=== PATIENT | female | born 1980 | race Caucasian/White ===

== ENCOUNTER 2020-07-12 18:44 | Outpatient (REF) | payer OTHER, SELFPAY ==
[2020-07-12 16:11] LABS: Anion Gap 10.6 mmol/L (3-11); BUN 5 mg/dL (7-18); CO2 29.4 mmol/L (21.0-32.0); CREATININE 0.6 mg/dL (0.55-1.02); Calcium 8.4 mg/dL (8.5-10.1); Calculated LDL 47 mg/dL (<100); Chloride 103 mmol/L (98-107); Cholesterol 152 mg/dL (<200); Glucose 85 mg/dL (74-106); HDL Cholesterol 91 mg/dL (40-60); Sodium 143 mmol/L (136-145); Triglyceride 72 mg/dL (<150)
== END 2020-07-12 18:45 | disposition home or self-care (01) ==
LOC: NCHCN 18:44
PROVIDERS: PCP Nurse Practitioner; Visit Provider Nurse Practitioner Family
DX: Z00.00 Encounter for general adult medical examination without abnormal findings (principal); R60.0 Localized edema; Z13.220 Encounter for screening for lipoid disorders
CPT/HCPCS: 80048; 80061

== ENCOUNTER 2021-07-15 19:59 | Outpatient (REF) | payer OTHER, SELFPAY ==
[2021-07-15 17:39] LABS: ALT 39 U/L (14-59); AST 40 U/L (15-37); Albumin 3.2 g/dL (3.4-5.0); Alkaline Phosphatase 102 U/L (46-116); Anion Gap 8.8 mmol/L (3-11); BUN 4 mg/dL (7-18); Bilirubin, Total 0.6 mg/dL (0.2-1.0); CO2 29.2 mmol/L (21.0-32.0); CREATININE 0.8 mg/dL (0.55-1.02); Calcium 8.7 mg/dL (8.5-10.1); Calculated LDL 83 mg/dL (<100); Chloride 105 mmol/L (98-107); Cholesterol 181 mg/dL (<200); Glucose 89 mg/dL (74-106); HDL Cholesterol 78 mg/dL (40-60); Potassium 4.2 mmol/L (3.5-5.1); Sodium 143 mmol/L (136-145); Total Protein 6.9 g/dL (6.4-8.2); Triglyceride 104 mg/dL (<150)
== END 2021-07-15 20:00 | disposition home or self-care (01) ==
LOC: NCHCN 19:59
PROVIDERS: PCP Nurse Practitioner; Visit Provider Nurse Practitioner Family
DX: Z00.00 Encounter for general adult medical examination without abnormal findings (principal); Z13.220 Encounter for screening for lipoid disorders
CPT/HCPCS: 80053; 80061

== ENCOUNTER 2022-05-20 15:03 | Outpatient (REF) | payer OTHER, SELFPAY ==
--- NOTE | 2022-05-20 14:25 | PAPFT_PTH ---
PATIENT: Rhona Cruz LOC: [facility]#:[id number] AGE/SX: 42/F ROOM: RE05/20/[address]: RAZIA TIMMONS : 1980 BED: DIS: 05/20/2022 SPEC #: [id number] RECD: 05/21/22 12:50 STATUS: MAGNUS REQ #: [id number] RONALD: 05/20/22 14:[address]: Razia Timmons DEPT: [facility] Cytology RECD BY: Lynnette Stevenson ENTERED: 05/21/22 12:51 SP TYPE: PAPFT OTHR DR: Angelina Mendoza Tissues: 1 - CX/ENDOCX FOR PAP SMEARS Procedures: PAP THIN PREP/[facility] Screening HPV DNA PROBE Comments: [id number]
== END 2022-05-20 15:04 | disposition home or self-care (01) ==
LOC: NCHCN 15:03
PROVIDERS: PCP Nurse Practitioner; Visit Provider Nurse Practitioner Family
DX: Z12.4 Encounter for screening for malignant neoplasm of cervix (principal); Z11.51 Encounter for screening for human papillomavirus (HPV)
CPT/HCPCS: 88142; 87624

== ENCOUNTER 2023-06-09 14:40 | Outpatient (REF) | payer OTHER, SELFPAY ==
[2023-06-09 19:51] LABS: ALT 48 U/L (14-59); AST 59 U/L (15-37); Albumin 2.2 g/dL (3.4-5.0); Alkaline Phosphatase 178 U/L (46-116); Anion Gap 8.2 mmol/L (3-11); BUN 6 mg/dL (7-18); Bilirubin, Total 0.6 mg/dL (0.2-1.0); CO2 34.8 mmol/L (21.0-32.0); CREATININE 0.8 mg/dL (0.55-1.02); Calcium 8.1 mg/dL (8.5-10.1); Calculated LDL 63 mg/dL (<100); Chloride 100 mmol/L (98-107); Cholesterol 144 mg/dL (<200); Estimated GFR 92.54 (mL/min/1.73m2); Glucose 92 mg/dL (74-106); HDL Cholesterol 68 mg/dL (40-60); Sodium 143 mmol/L (136-145); Total Protein 6.2 g/dL (6.4-8.2); Triglyceride 67 mg/dL (<150); Vitamin B12 590 pg/mL (193-986)
[2023-06-09 20:24] LABS: Vitamin D 25 Total 20.6 ng/mL (30-100)
[2023-06-09 20:36] LABS: Potassium 2.8 mmol/L (3.5-5.1)
== END 2023-06-09 14:41 | disposition home or self-care (01) ==
LOC: NCHCN 14:40
PROVIDERS: Visit Provider Nurse Practitioner Family
DX: Z00.00 Encounter for general adult medical examination without abnormal findings (principal); Z13.220 Encounter for screening for lipoid disorders; Z13.21 Encounter for screening for nutritional disorder; Z13.228 Encounter for screening for other metabolic disorders
CPT/HCPCS: 80053; 80061; 82306; 82607